=== PATIENT | female | born 1955 | race African-American/Black ===

== ENCOUNTER 2020-12-06 06:05 | Day surgery (SDCO) | payer OTHER ==
[~2020-12-06 06:05] MED LIST: ARICEPT23 MG PO; ASPIRIN CHEWABL81 MG PO; ATROPINE 0.01%-10 ML EYERT; AZOPT10 ML EYELF; BENTYL10 MG PO; BETIMOL5 ML EYEBOTH; BRIMONIDINE 0.110 ML EYEBOTH; CINNAMON500 MG PO; CIPRO500 M1 PO; COMBIGAN EYE DRO5 ML OS; DEXILANT60 MG PO; DIOVAN160 MG PO; DORZOLAMIDE 2% OU; ELAVIL50 MG PO; GINKGO BILOBA120 M1 PO; GINKGO BILOBA120 MG PO; GLUCOPHAGE1000 MG PO; GLUCOTROL5 MG PO; HUMULIN 70100 UNIT/1 SC; HUMULIN R100 UNIT/1 SC; HYDROCODONE-APA1 TAB PO; IBUPROFEN800 MG PO; IRBESARTAN150 MG PO; IRON325 M1 PO; ISOSORBIDE MONO60 M1 PO; ISOSORBIDE MONO60 MG PO; KLOR-CON M20 T20 MEQ PO; LANTUS **100 UNITS/ SC; LANTUS SOL100 UNIT/1 SC; LASIX40 MG PO; LINZESS290 MCG PO; LOPRESSOR50 MG PO; LUMIGAN5 ML OU; LYRICA 50MG CAP50 MG PO; LYRICA150 MG PO; MIRALAX17 GM PO; NAPROXEN500 MG PO; NITROQUIK SL0.4 MG SL; NORVASC5 MG PO; NOVOLOG FL100 UNIT/1 SC; NOVOLOG VI100 UNIT/1 SC; ONDANSETRON ODT4 MG SL; PRINIVIL10 MG PO; PROTONIX 40MG T40 MG PO; REGLAN10 MG PO; RHOPRESSA2.5 ML EYELF; ROBAXIN750 MG PO; TIZANIDINE HCL4 MG PO; TRESIBA100 UNIT/1 SC; ULTRA-LIGHT RO1 EACH XX; VENTOLIN (2.5 MG/3 M NEB; VERAPAMIL ER240 M1 PO; VITAMIN D1000 UNI1 PO; XALATAN2.5 ML EYELF; XALATAN2.5 ML OU; ZOFRAN4 MG PO; ZYRTEC10 MG PO; [UNRECOGNIZED DRUG - OTHER] OU
[2020-12-06 07:31] LABS: BASOPHIL 0.4 % (0-2); HCT 37.9 % (37.0-47.0); HGB 12.7 g/dl (12.5-16.0); LYMPHOCYTE 15.4 % (15-48); MCH 29.1 pg (25.0-31.0); MCHC 33.5 g/dL (32.0-36.0); MCV 86.7 fL (78.0-100.0); MONOCYTE 6.3 % (0-12); MPV 9.9 fL (6.0-9.5); NEUTROPHIL 76.4 % (41-80); NRBC 0; PLT 153 K/uL (150-400); RBC 4.37 M/uL (4.20-5.40); RDW 12.8 % (11.5-14.0); WBC 10.2 K/uL (4.0-10.5)
[2020-12-06 07:44] LABS: INR 1.21 (0.9-1.2); PROTHROMBIN TIME 14.5 SECONDS (11.4-13.6); PTT 28.5 SECONDS (22.2-34.7)
[2020-12-06 07:52] LABS: ALBUMIN 3.3 g/dL (3.4-5.0); BILIRUBIN - TOTAL 1.3 mg/dL (0.2-1.0); BUN/CREAT RATIO (CALC) 19.8 RATIO; CREATININE 0.96 mg/dL (0.51-0.95); GLOBULIN (CALCULATION) 3.8 g/dL; POTASSIUM 3.6 mmol/L (3.5-5.1); TOTAL PROTEIN 7.1 g/dL (6.4-8.2)
[2020-12-06 08:00] LABS: PRO-BNP 104 pg/mL (<125)
[2020-12-06] MEDS ORDERED: COREG12.5 MG PO (12:55)
[2020-12-06] MEDS ORDERED: CHLORTHALIDONE25 MG PO (12:56)
[2020-12-06] MEDS ORDERED: REGLAN10 MG PO (13:00)
[2020-12-06] MEDS ORDERED: HYDROCODON-ACE1 EAC1 PO (13:02)
[2020-12-06] MEDS ORDERED: NOVOLOG VI100 UNIT/1 SC (13:02)
--- NOTE | 2020-12-06 15:58 | NUR ---
PT C/O CHEST PRESSURE 6/10 AT THIS TIME. NORCO AND MUSCLE RELAXER WAS GIVEN BECAUSE PT ALREADY RECIEVED 3 X NITRO IN THE ER. WAS NOTIFIED THAT PAIN WAS NOT RESOLVED BY 1700 AND STATED HE WOULD PUT A NITRO PASTE IN. NO ORDER IN YET.
--- NOTE | 2020-12-06 17:00 | NUR ---
PT STILL SAYS CHEST PRESSURE IS 5/10 AND THAT NORCO DID NOT HELP. MD WAS NOTIFIED AND STATED HE WOULD PUT ANOTHER ORDER IN. NO NEW RODERS VERIFIED AT THIS TIME.
[2020-12-07] MEDS ORDERED: NORVASC5 MG PO (16:11)
--- NOTE | 2020-12-07 16:52 | NUR ---
12/07 Ms. Harding lives with her daughter and grandson. She has a cane, rw, handicapped commode, and s. chair. Ms. Harding request for PT and nursing. A referal was made to [facility] via [facility] per patient choice; affliation explained. Report given to Dr. Cosme and CR Adam RN.
== END 2020-12-07 16:56 | disposition home or self-care (01) ==
LOC: FER 06:05 → FTCU 10:52
PROVIDERS: Emergency Medicine Emergency Medical Services; ADMIT Hospitalist
DX: I11.0 Hypertensive heart disease with heart failure (principal); I50.9 Heart failure, unspecified; J44.9 Chronic obstructive pulmonary disease, unspecified; E11.9 Type 2 diabetes mellitus without complications; E11.40 Type 2 diabetes mellitus with diabetic neuropathy, unspecified; E78.5 Hyperlipidemia, unspecified; I25.10 Atherosclerotic heart disease of native coronary artery without angina pectoris; Z90.49 Acquired absence of other specified parts of digestive tract; Z90.710 Acquired absence of both cervix and uterus; Z98.41 Cataract extraction status, right eye; Z79.4 Long term (current) use of insulin; Z79.899 Other long term (current) drug therapy; Z20.822 Contact with and (suspected) exposure to COVID-19; R07.89 Other chest pain; Z82.49 Family history of ischemic heart disease and other diseases of the circulatory system; Z95.9 Presence of cardiac and vascular implant and graft, unspecified
CPT/HCPCS: 36415; 71045; 80053; 82962; 83880; 84484; 85025; 85610; 85730; 93005; 94010; C1713; G0378; J1200; J1940; U0002

== ENCOUNTER 2020-12-22 18:16 | Emergency (ER) | payer OTHER ==
[~2020-12-22 18:16] MED LIST changes: +CHLORTHALIDONE25 MG PO; +COREG12.5 MG PO; +HYDROCODON-ACE1 EAC1 PO
[2020-12-22 19:11] LABS: BASOPHIL 0.5 % (0-2); EOSINOPHIL 0.9 % (0-7); HCT 38.5 % (37.0-47.0); HGB 13.4 g/dl (12.5-16.0); LYMPHOCYTE 20.9 % (15-48); MCH 29.2 pg (25.0-31.0); MCHC 34.8 g/dL (32.0-36.0); MCV 83.9 fL (78.0-100.0); MONOCYTE 7.1 % (0-12); MPV 9.5 fL (6.0-9.5); NEUTROPHIL 70.3 % (41-80); NRBC 0; PLT 207 K/uL (150-400); RBC 4.59 M/uL (4.20-5.40); RDW 12.3 % (11.5-14.0); WBC 11.7 K/uL (4.0-10.5)
[2020-12-22 19:15] LABS: ALBUMIN 3.8 g/dL (3.4-5.0); BILIRUBIN - TOTAL 0.5 mg/dL (0.2-1.0); BUN/CREAT RATIO (CALC) 11.1 RATIO; CREATININE 1.26 mg/dL (0.51-0.95); POTASSIUM 3.2 mmol/L (3.5-5.1); TOTAL PROTEIN 7.8 g/dL (6.4-8.2)
[2020-12-22 19:16] LABS: INR 1.2 (0.9-1.2); PROTHROMBIN TIME 14.4 SECONDS (11.4-13.6)
[2020-12-22 19:17] LABS: PTT 27.8 SECONDS (22.2-34.7)
== END 2020-12-23 03:02 | disposition home or self-care (01) ==
LOC: FER 18:16
PROVIDERS: Emergency Medicine
DX: R07.9 Chest pain, unspecified (principal); R20.2 Paresthesia of skin; I69.354 Hemiplegia and hemiparesis following cerebral infarction affecting left non-dominant side; I50.9 Heart failure, unspecified; E11.9 Type 2 diabetes mellitus without complications; E78.5 Hyperlipidemia, unspecified; J44.9 Chronic obstructive pulmonary disease, unspecified; Z91.041 Radiographic dye allergy status
CPT/HCPCS: 36415; 70450; 71045; 80053; 84484; 85025; 85610; 85730; 93005; J0780; J1200; J2930; Q9967

== ENCOUNTER 2021-01-12 14:00 | Inpatient (IN) | payer OTHER ==
[2021-01-12 16:57] LABS: BASOPHIL 0.2 % (0-2); EOSINOPHIL 0 % (0-7); HCT 32.8 % (37.0-47.0); HGB 11.5 g/dl (12.5-16.0); LYMPHOCYTE 15.1 % (15-48); MCH 29.4 pg (25.0-31.0); MCHC 35.1 g/dL (32.0-36.0); MCV 83.9 fL (78.0-100.0); MONOCYTE 9.3 % (0-12); MPV 9.8 fL (6.0-9.5); NRBC 0; PLT 144 K/uL (150-400); RBC 3.91 M/uL (4.20-5.40); RDW 12.4 % (11.5-14.0); WBC 5.2 K/uL (4.0-10.5)
[2021-01-12 17:12] LABS: INR 1.28 (0.9-1.2); PROTHROMBIN TIME 15.2 SECONDS (11.4-13.6); PTT 32.5 SECONDS (22.2-34.7)
[2021-01-12 17:28] LABS: PRO-BNP 348 pg/mL (<125)
[2021-01-12 17:29] LABS: LACTIC ACID 1.5 mmol/L (0.4-1.9)
[2021-01-12 18:00] LABS: ALBUMIN 2.6 g/dL (3.4-5.0); ALKALINE PHOSHATASE 151 U/L (46-116); ALT 25 U/L (14-59); AST 36 U/L (15-37); BILIRUBIN - TOTAL 1.1 mg/dL (0.2-1.0); BUN 24 mg/dL (7-18); BUN/CREAT RATIO (CALC) 27.6 RATIO; C-REACTIVE PROTEIN >18.00 mg/dL (<=0.90); CHLORIDE 101 mmol/L (98-107); CO2 (BICARBONATE) 24 mmol/L (21-32); CREATININE 0.87 mg/dL (0.51-0.95); GLOBULIN (CALCULATION) 3.7 g/dL; GLUCOSE 362 mg/dL (74-106); LDH 544 U/L (81-234); POTASSIUM 3.7 mmol/L (3.5-5.1); TOTAL PROTEIN 6.3 g/dL (6.4-8.2)
[2021-01-13 07:00] LABS: BASOPHIL 0.5 % (0-2); EOSINOPHIL 0 % (0-7); HCT 34.1 % (37.0-47.0); HGB 11.8 g/dl (12.5-16.0); MCH 29.2 pg (25.0-31.0); MCHC 34.6 g/dL (32.0-36.0); MCV 84.4 fL (78.0-100.0); MONOCYTE 10.5 % (0-12); MPV 9.8 fL (6.0-9.5); NEUTROPHIL 75.1 % (41-80); NRBC 0; PLT 161 K/uL (150-400); RBC 4.04 M/uL (4.20-5.40); RDW 12.3 % (11.5-14.0); WBC 4.4 K/uL (4.0-10.5)
[2021-01-13 08:06] LABS: ALBUMIN 2.5 g/dL (3.4-5.0); BILIRUBIN - TOTAL 1.2 mg/dL (0.2-1.0); BUN/CREAT RATIO (CALC) 36.4 RATIO; CREATININE 0.66 mg/dL (0.51-0.95); GLOBULIN (CALCULATION) 4.8 g/dL; POTASSIUM 3.7 mmol/L (3.5-5.1); TOTAL PROTEIN 7.3 g/dL (6.4-8.2)
--- NOTE | 2021-01-13 14:21 | NUR ---
Pt triggered for recent wt loss with MST score of 4. No ONS at present. Patient on cardiac diet- RD recommended CCD 45 diet for optimal BS mgmt. will monitor p.o. intake and add ONS if appropriate.
[2021-01-14 06:09] LABS: BASOPHIL 0 % (0-2); EOSINOPHIL 0 % (0-7); HCT 33.4 % (37.0-47.0); HGB 11.3 g/dl (12.5-16.0); LYMPHOCYTE 8.8 % (15-48); MCH 28.7 pg (25.0-31.0); MCHC 33.8 g/dL (32.0-36.0); MCV 84.8 fL (78.0-100.0); MONOCYTE 10.3 % (0-12); NEUTROPHIL 80.4 % (41-80); NRBC 0; PLT 169 K/uL (150-400); RBC 3.94 M/uL (4.20-5.40); RDW 12.3 % (11.5-14.0); WBC 6.2 K/uL (4.0-10.5)
[2021-01-14 06:27] LABS: BUN/CREAT RATIO (CALC) 47.6 RATIO; CREATININE 0.82 mg/dL (0.51-0.95); POTASSIUM 3.5 mmol/L (3.5-5.1)
--- NOTE | 2021-01-14 14:22 | NUR ---
SPOKE WITH COMPA OLGUIN, PT IS COVID POS. ADVISED THAT PT. WILL GO HOME WITH O2. SHE ADVISED THAT PT IS CURRENT WITH [facility]. SHE WANTED [facility] FOR O2. SHE VERBALLY AGREED WITH CHOICE FORM. SENT REQUEST FOR O2 TRAVEL TANK TO [facility] AND REQUEST FOR CONCENTRATOR TO BE DELIVERED TO HOME. PT. IS CURRENTLY ON OXIMIZER PER DOROTHY LUCAS. SHE SAID THE OXAMIZER WOULD GO HOME WITH PT. SHIRAZ/SHARAN HAS BEEN MADE AWARE OF PT. STAY THROUGH [facility].
--- NOTE | 2021-01-14 14:24 | NUR ---
PLEASE NOTIFY [facility] IF PT. D/C OVER WEEKEND. ALSO PLEASE HAVE THE DAUGHTER CALL [facility] FOR WEEK END DELIVERY. THE PHONE NUMBER IS [phone].
--- NOTE | 2021-01-14 14:46 | NUR ---
TOILETED PT AND WALKED TO CHAIR FROM [facility] 1 WITH WALKER AND GAIT BELT.
--- NOTE | 2021-01-14 18:23 | NUR ---
1100- SPOKE WITH SON ABOUT PT CONDITION, INFORMED HIM OF THE USE OF REMDESIVIR AND CHANGING FROM 50% VENTI TO 6L OXIMIZER. PT SAT IS 94%. 1234- RESPITORY WEANED OXIMIZER TO 5L 02. 1414- SPOKE WITH SON AGAIN ABOUT NEW MEDICATION TOCILIZUMAB BEING USED. SON VERBALIZED UNDERSTANDING.
[2021-01-15 06:02] LABS: BASOPHIL 0.2 % (0-2); EOSINOPHIL 0 % (0-7); HCT 30.7 % (37.0-47.0); HGB 10.6 g/dl (12.5-16.0); LYMPHOCYTE 10.2 % (15-48); MCHC 34.5 g/dL (32.0-36.0); MCV 83.9 fL (78.0-100.0); MONOCYTE 12.1 % (0-12); NEUTROPHIL 76.5 % (41-80); NRBC 0; PLT 191 K/uL (150-400); RBC 3.66 M/uL (4.20-5.40); RDW 12.4 % (11.5-14.0); WBC 5.9 K/uL (4.0-10.5)
[2021-01-15 06:31] LABS: INR 1.43 (0.9-1.2); PROTHROMBIN TIME 16.6 SECONDS (11.4-13.6)
[2021-01-15 06:36] LABS: ALBUMIN 2.3 g/dL (3.4-5.0); BILIRUBIN - TOTAL 0.5 mg/dL (0.2-1.0); BUN/CREAT RATIO (CALC) 38.2 RATIO; C-REACTIVE PROTEIN 4.7 mg/dL (<=0.90); CREATININE 1.1 mg/dL (0.51-0.95); POTASSIUM 3.6 mmol/L (3.5-5.1); TOTAL PROTEIN 6.3 g/dL (6.4-8.2)
[2021-01-16 04:16] LABS: BASOPHIL 0.1 % (0-2); EOSINOPHIL 0 % (0-7); HCT 30.4 % (37.0-47.0); HGB 10.5 g/dl (12.5-16.0); LYMPHOCYTE 10.6 % (15-48); MCH 29.1 pg (25.0-31.0); MCHC 34.5 g/dL (32.0-36.0); MCV 84.2 fL (78.0-100.0); MPV 9.7 fL (6.0-9.5); NEUTROPHIL 74.1 % (41-80); NRBC 0.4; PLT 215 K/uL (150-400); RBC 3.61 M/uL (4.20-5.40); RDW 12.4 % (11.5-14.0); WBC 7.1 K/uL (4.0-10.5)
[2021-01-16 04:34] LABS: BUN/CREAT RATIO (CALC) 35.8 RATIO; C-REACTIVE PROTEIN 2.9 mg/dL (<=0.90); CREATININE 1.09 mg/dL (0.51-0.95); POTASSIUM 3.5 mmol/L (3.5-5.1)
[2021-01-17 10:07] LABS: FOLIC ACID (SERUM) 12.6 ng/mL (8.6-58.9)
--- NOTE | 2021-01-17 14:40 | NUR ---
0930- HAD PT IN SEMI PRONE POSITION. 02 IMPROVED FROM 92% TO 100% ON HIGH FLOW O2. STAYED IN THIS POSITION FOR 30MINUTES. PT CONFUSED AND REPEATEDLY CLIMBING OUT OF BED AND HAVING CONFUSED STATEMENTS. STATES HER DAUGHTER IS IN ROOM. 1000 [employer] AT PT BEDSIDE SITTER. 1015 ASSISTED WITH PT AMBULATION TO CHAIR. 1400-RIGOBERTO PT SON CALLED FOR UPDATE ON CONDITION. NOTIFIED OF O2 SAT 96% PT CONTINUE TO BECOME INCREASINGLY CONFUSED. WILL NOTIFY DR. CONTI
[2021-01-17 19:55] LABS: CHOLESTEROL 70 mg/dL (<200); HDL 23 mg/dL (40-60); LDL - DIRECT 36 mg/dL (<100); TRIGLYCERIDES 82 mg/dL (<150)
[2021-01-18 06:18] LABS: HGB 12.5 g/dl (12.5-16.0); MCH 29.1 pg (25.0-31.0); MCHC 34.7 g/dL (32.0-36.0); MCV 83.9 fL (78.0-100.0); MPV 9.5 fL (6.0-9.5); RBC 4.29 M/uL (4.20-5.40); RDW 12.7 % (11.5-14.0); WBC 10.3 K/uL (4.0-10.5)
[2021-01-18 06:40] LABS: BUN/CREAT RATIO (CALC) 43.9 RATIO; CREATININE 0.66 mg/dL (0.51-0.95); POTASSIUM 3.7 mmol/L (3.5-5.1)
== END 2021-01-18 10:56 | disposition other institution (70) | DRG 177 ==
LOC: FER 14:00 → FTCU 17:59 → FICU 01-17 05:45
PROVIDERS: Emergency Medicine; Hospitalist; Nurse Practitioner; ADMIT Allergy & Immunology Allergy
PROC: 8E0ZXY6 Isolation (ICD-10-PCS; 2021-01-12)
PROC: 5A0945A Assistance with Respiratory Ventilation, 24-96 Consecutive Hours, High Flow/Velocity Cannula (ICD-10-PCS; 2021-01-12)
PROC: XW033E5 Introduction of Remdesivir Anti-infective into Peripheral Vein, Percutaneous Approach, New Technology Group 5 (ICD-10-PCS; principal; 2021-01-13)
PROC: XW033H5 Introduction of Tocilizumab into Peripheral Vein, Percutaneous Approach, New Technology Group 5 (ICD-10-PCS; 2021-01-14)
DX: U07.1 COVID-19 (principal); J96.01 Acute respiratory failure with hypoxia; J12.82 Pneumonia due to coronavirus disease 2019; I63.9 Cerebral infarction, unspecified; G93.41 Metabolic encephalopathy; K74.60 Unspecified cirrhosis of liver; E11.65 Type 2 diabetes mellitus with hyperglycemia; T38.0X5A Adverse effect of glucocorticoids and synthetic analogues, initial encounter; J44.9 Chronic obstructive pulmonary disease, unspecified; R10.9 Unspecified abdominal pain; I11.0 Hypertensive heart disease with heart failure; I50.9 Heart failure, unspecified; H40.9 Unspecified glaucoma; H54.8 Legal blindness, as defined in USA; K38.8 Other specified diseases of appendix; E11.40 Type 2 diabetes mellitus with diabetic neuropathy, unspecified; K76.0 Fatty (change of) liver, not elsewhere classified; Z90.49 Acquired absence of other specified parts of digestive tract; Z90.710 Acquired absence of both cervix and uterus; Z91.041 Radiographic dye allergy status; Z91.013 Allergy to seafood; Z98.42 Cataract extraction status, left eye; Z86.73 Personal history of transient ischemic attack (TIA), and cerebral infarction without residual deficits; Z79.4 Long term (current) use of insulin; Z79.899 Other long term (current) drug therapy
CPT/HCPCS: 36415; 36600; 70450; 70551; 71045; 71250; 80048; 80053; 80061; 82140; 82607; 82728; 82746; 82803; 82962; 83036; 83540; 83605; 83615; 83880; 84145; 84484; 85025; 85610; 85730; 86140; 93880; 94640; 97110; 97116; 97162; 97166; 97530-GP; 97535; C9399; J1100; J1200; J1650; J2060; J2405; J2543; J3262; J3486; J7050; J8540; U0002

== ENCOUNTER 2021-03-08 15:18 | Emergency (ER) | payer OTHER ==
[2021-03-08 16:10] LABS: BASOPHIL 0.6 % (0-2); EOSINOPHIL 6.1 % (0-7); HCT 36.2 % (37.0-47.0); HGB 12.1 g/dl (12.5-16.0); LYMPHOCYTE 24.6 % (15-48); MCH 30.4 pg (25.0-31.0); MCHC 33.4 g/dL (32.0-36.0); MONOCYTE 8.9 % (0-12); MPV 10.4 fL (6.0-9.5); NEUTROPHIL 59.2 % (41-80); NRBC 0; PLT 141 K/uL (150-400); RBC 3.98 M/uL (4.20-5.40); RDW 13.9 % (11.5-14.0); WBC 7.8 K/uL (4.0-10.5)
[2021-03-08 17:02] LABS: ALBUMIN 2.8 g/dL (3.4-5.0); BILIRUBIN - TOTAL 0.4 mg/dL (0.2-1.0); CREATININE 0.95 mg/dL (0.51-0.95); GLOBULIN (CALCULATION) 4.9 g/dL; POTASSIUM 4.5 mmol/L (3.5-5.1); TOTAL PROTEIN 7.7 g/dL (6.4-8.2)
== END 2021-03-08 18:50 | disposition home or self-care (01) ==
LOC: FER 15:18
PROVIDERS: Emergency Medicine
DX: E11.65 Type 2 diabetes mellitus with hyperglycemia (principal); J44.9 Chronic obstructive pulmonary disease, unspecified; I10 Essential (primary) hypertension; Z79.4 Long term (current) use of insulin
CPT/HCPCS: 36415; 80053; 85025; J7030

== ENCOUNTER 2021-05-01 08:52 | Emergency (ER) | payer OTHER ==
[2021-05-01 10:05] LABS: BASOPHIL 0.4 % (0-2); EOSINOPHIL 1.9 % (0-7); HCT 34.6 % (37.0-47.0); HGB 11.5 g/dl (12.5-16.0); LYMPHOCYTE 17.1 % (15-48); MCH 27.7 pg (25.0-31.0); MCHC 33.2 g/dL (32.0-36.0); MCV 83.4 fL (78.0-100.0); MONOCYTE 9.5 % (0-12); MPV 10.9 fL (6.0-9.5); NEUTROPHIL 70.6 % (41-80); NRBC 0; PLT 133 K/uL (150-400); RBC 4.15 M/uL (4.20-5.40); RDW 12.5 % (11.5-14.0); WBC 8.3 K/uL (4.0-10.5)
[2021-05-01 10:19] LABS: ALBUMIN 2.8 g/dL (3.4-5.0); BILIRUBIN - TOTAL 0.7 mg/dL (0.2-1.0); BUN/CREAT RATIO (CALC) 32.6 RATIO; CREATININE 0.86 mg/dL (0.51-0.95); GLOBULIN (CALCULATION) 4.4 g/dL; POTASSIUM 3.5 mmol/L (3.5-5.1); TOTAL PROTEIN 7.2 g/dL (6.4-8.2)
[2021-05-01 13:04] LABS: BILIRUBIN NEGATIVE (NEGATIVE); BLOOD TRACE-INTACT Ery/uL (NEGATIVE); CLARITY CLEAR (CLEAR); COLOR YELLOW (YELLOW); GLUCOSE (U) NORMAL (NORMAL); LEUKOCYTES 2+ Leu/uL (NEGATIVE); NITRITE POSITIVE (NEGATIVE); PROTEIN NEGATIVE (NEGATIVE); UROBILINOGEN 0.2 mg/dL (0.2-1.0); pH 5.5 (5.0-9.0)
[2021-05-01 13:15] LABS: BACTERIA 4+; URINARY WBC 20-50; YEAST PRESENT
[2021-05-01] MEDS ORDERED: BACTRIM DS TAB1 EACH PO (13:36)
[2021-05-01] MEDS ORDERED: DIFLUCAN 100MG100 MG PO (13:36)
== END 2021-05-01 13:52 | disposition home or self-care (01) ==
LOC: FER 08:52
PROVIDERS: Emergency Medicine
DX: N39.0 Urinary tract infection, site not specified (principal); I11.0 Hypertensive heart disease with heart failure; I50.9 Heart failure, unspecified; Z91.041 Radiographic dye allergy status; Z79.82 Long term (current) use of aspirin; Z79.899 Other long term (current) drug therapy
CPT/HCPCS: 36415; 80053; 81001; 82150; 83690; 85025; J2270; J2405

== ENCOUNTER 2021-06-18 10:23 | Inpatient (IN) | payer OTHER ==
[~2021-06-18] VITALS: Ht 157.5 cm; Wt 73.2 kg
[~2021-06-18 10:23] MED LIST changes: +BACTRIM DS TAB1 EACH PO; +DIFLUCAN 100MG100 MG PO
[2021-06-18 12:47] LABS: BASOPHIL 0.3 % (0-2); EOSINOPHIL 1.7 % (0-7); HCT 31.4 % (37.0-47.0); HGB 10.2 g/dl (12.5-16.0); LYMPHOCYTE 10.8 % (15-48); MCH 26.4 pg (25.0-31.0); MCHC 32.5 g/dL (32.0-36.0); MCV 81.3 fL (78.0-100.0); MONOCYTE 8.4 % (0-12); MPV 9.7 fL (6.0-9.5); NEUTROPHIL 78.5 % (41-80); NRBC 0; PLT 139 K/uL (150-400); RBC 3.86 M/uL (4.20-5.40); RDW 13.6 % (11.5-14.0); WBC 5.8 K/uL (4.0-10.5)
[2021-06-18 13:07] LABS: ALBUMIN 2.6 g/dL (3.4-5.0); BILIRUBIN - TOTAL 0.6 mg/dL (0.2-1.0); BUN/CREAT RATIO (CALC) 28.9 RATIO; CREATININE 0.76 mg/dL (0.51-0.95); GLOBULIN (CALCULATION) 4.2 g/dL; POTASSIUM 4.2 mmol/L (3.5-5.1); TOTAL PROTEIN 6.8 g/dL (6.4-8.2)
[2021-06-18 13:17] LABS: BILIRUBIN NEGATIVE (NEGATIVE); BLOOD 1+ Ery/uL (NEGATIVE); COLOR YELLOW (YELLOW); GLUCOSE (U) TRACE mg/dL (NORMAL); LEUKOCYTES 1+ Leu/uL (NEGATIVE); NITRITE NEGATIVE (NEGATIVE); PROTEIN NEGATIVE (NEGATIVE); pH 6.5 (5.0-9.0)
[2021-06-18 13:21] LABS: CLARITY CLOUDY (CLEAR)
[2021-06-18 13:26] LABS: BACTERIA 3+; YEAST PRESENT
[2021-06-18 14:27] LABS: INR 1.22 (0.9-1.2); PROTHROMBIN TIME 14.8 SECONDS (11.8-13.4); PTT 26.5 SECONDS (24.4-34.7)
[2021-06-18] MEDS ORDERED: ASPIRIN EC325 MG PO (18:51)
[2021-06-19 06:31] LABS: BASOPHIL 0.4 % (0-2); EOSINOPHIL 2.9 % (0-7); HCT 28.7 % (37.0-47.0); HGB 9.2 g/dl (12.5-16.0); LYMPHOCYTE 21.1 % (15-48); MCH 26.1 pg (25.0-31.0); MCHC 32.1 g/dL (32.0-36.0); MCV 81.3 fL (78.0-100.0); MONOCYTE 12.7 % (0-12); MPV 10.4 fL (6.0-9.5); NEUTROPHIL 62.5 % (41-80); NRBC 0; PLT 142 K/uL (150-400); RBC 3.53 M/uL (4.20-5.40); RDW 13.7 % (11.5-14.0); WBC 4.9 K/uL (4.0-10.5)
[2021-06-19 07:35] LABS: ALBUMIN 2.4 g/dL (3.4-5.0); BILIRUBIN - TOTAL 0.5 mg/dL (0.2-1.0); BUN/CREAT RATIO (CALC) 20.5 RATIO; CREATININE 0.73 mg/dL (0.51-0.95); POTASSIUM 4.2 mmol/L (3.5-5.1); TOTAL PROTEIN 6.4 g/dL (6.4-8.2)
[2021-06-20 06:12] LABS: BASOPHIL 0.5 % (0-2); EOSINOPHIL 3.3 % (0-7); HCT 32.3 % (37.0-47.0); HGB 10.3 g/dl (12.5-16.0); LYMPHOCYTE 19.3 % (15-48); MCH 25.9 pg (25.0-31.0); MCHC 31.9 g/dL (32.0-36.0); MCV 81.4 fL (78.0-100.0); MONOCYTE 11.4 % (0-12); MPV 9.8 fL (6.0-9.5); NEUTROPHIL 65.3 % (41-80); NRBC 0; PLT 147 K/uL (150-400); RBC 3.97 M/uL (4.20-5.40); RDW 13.6 % (11.5-14.0); WBC 4.3 K/uL (4.0-10.5)
[2021-06-20 06:24] LABS: ALBUMIN 2.7 g/dL (3.4-5.0); BILIRUBIN - TOTAL 0.6 mg/dL (0.2-1.0); BUN/CREAT RATIO (CALC) 19.7 RATIO; CREATININE 0.76 mg/dL (0.51-0.95); GLOBULIN (CALCULATION) 3.8 g/dL; POTASSIUM 3.9 mmol/L (3.5-5.1); TOTAL PROTEIN 6.5 g/dL (6.4-8.2)
--- NOTE | 2021-06-20 14:43 | NUR ---
SPOKE WITH DAUGHTER, AMY. SHE ADVISED THAT HER MOTHER HAS A CANE AND ROLLING WALKER. SHE ALSO HAS HOME O2 AND WILL BRING A PORTABLE TANK WHEN SHE IS READY TO D/C HOME. PT. DAUGHTER DECLINED HH AT THIS TIME AND STATED THAT SHE TAKES CARE OF HER MOTHER.
[2021-06-21 06:11] LABS: BASOPHIL 0.6 % (0-2); EOSINOPHIL 2.9 % (0-7); HCT 30.5 % (37.0-47.0); HGB 9.7 g/dl (12.5-16.0); LYMPHOCYTE 18.2 % (15-48); MCH 25.9 pg (25.0-31.0); MCHC 31.8 g/dL (32.0-36.0); MCV 81.3 fL (78.0-100.0); MONOCYTE 13.6 % (0-12); MPV 9.9 fL (6.0-9.5); NEUTROPHIL 64.5 % (41-80); NRBC 0; PLT 145 K/uL (150-400); RBC 3.75 M/uL (4.20-5.40); RDW 13.8 % (11.5-14.0); WBC 4.8 K/uL (4.0-10.5)
[2021-06-21 06:32] LABS: ALBUMIN 2.4 g/dL (3.4-5.0); BILIRUBIN - TOTAL 0.4 mg/dL (0.2-1.0); CREATININE 0.84 mg/dL (0.51-0.95); GLOBULIN (CALCULATION) 4.2 g/dL; TOTAL PROTEIN 6.6 g/dL (6.4-8.2)
[2021-06-22] MEDS ORDERED: DIFLUCAN 100MG100 MG PO (10:42)
[2021-06-22] MEDS ORDERED: COREG25 MG PO (10:42)
== END 2021-06-22 11:42 | disposition home or self-care (01) | DRG 757 ==
LOC: FER 10:23 → FMS 16:07
PROVIDERS: Internal Medicine; Nurse Practitioner; ADMIT Allergy & Immunology Allergy
DX: B37.41 Candidal cystitis and urethritis (principal); G93.41 Metabolic encephalopathy; F05 Delirium due to known physiological condition; Z20.822 Contact with and (suspected) exposure to COVID-19; E11.9 Type 2 diabetes mellitus without complications; F03.90 Unspecified dementia, unspecified severity, without behavioral disturbance, psychotic disturbance, mood disturbance, and anxiety; E78.5 Hyperlipidemia, unspecified; H40.9 Unspecified glaucoma; G89.29 Other chronic pain; K76.0 Fatty (change of) liver, not elsewhere classified; E11.40 Type 2 diabetes mellitus with diabetic neuropathy, unspecified; H54.8 Legal blindness, as defined in USA; M19.90 Unspecified osteoarthritis, unspecified site; J47.9 Bronchiectasis, uncomplicated; K74.60 Unspecified cirrhosis of liver; I50.9 Heart failure, unspecified; R16.1 Splenomegaly, not elsewhere classified; Z90.49 Acquired absence of other specified parts of digestive tract; Z90.710 Acquired absence of both cervix and uterus; Z98.890 Other specified postprocedural states; B94.8 Sequelae of other specified infectious and parasitic diseases; Z86.73 Personal history of transient ischemic attack (TIA), and cerebral infarction without residual deficits; Z83.3 Family history of diabetes mellitus; Z82.49 Family history of ischemic heart disease and other diseases of the circulatory system; Z91.041 Radiographic dye allergy status; Z91.013 Allergy to seafood
CPT/HCPCS: 36415; 70450; 71250; 80053; 81001; 82140; 82150; 82962; 83605; 83690; 84145; 84484; 85025; 85610; 85730; 87088; 93005; 97162; 97166; 97530-GP; 97535; J0696; J1170; J2405; J3360; J7030; U0002

== ENCOUNTER 2021-06-26 08:35 | Emergency (ER) | payer OTHER ==
[~2021-06-26] VITALS: Ht 157.5 cm; Wt 77.1 kg
[~2021-06-26 08:35] MED LIST changes: +ASPIRIN EC325 MG PO; +COREG25 MG PO
[2021-06-26 09:09] LABS: BASOPHIL 0.2 % (0-2); EOSINOPHIL 0.3 % (0-7); HCT 32.8 % (37.0-47.0); HGB 10.3 g/dl (12.5-16.0); LYMPHOCYTE 8.8 % (15-48); MCH 25.6 pg (25.0-31.0); MCHC 31.4 g/dL (32.0-36.0); MCV 81.6 fL (78.0-100.0); MONOCYTE 9.8 % (0-12); NEUTROPHIL 80.4 % (41-80); NRBC 0; PLT 161 K/uL (150-400); RBC 4.02 M/uL (4.20-5.40); RDW 13.9 % (11.5-14.0)
[2021-06-26 09:24] LABS: BILIRUBIN NEGATIVE (NEGATIVE); BLOOD NEGATIVE Ery/uL (NEGATIVE); CLARITY CLEAR (CLEAR); COLOR YELLOW (YELLOW); GLUCOSE (U) 1+ mg/dL (NORMAL); LEUKOCYTES TRACE Leu/uL (NEGATIVE); NITRITE NEGATIVE (NEGATIVE); PROTEIN 1+ mg/dL (NEGATIVE); SPECIFIC GRAVITY >=1.030 (1.001-1.030)
[2021-06-26 09:25] LABS: LACTIC ACID 1.4 mmol/L (0.4-1.9)
[2021-06-26 09:30] LABS: ALBUMIN 2.4 g/dL (3.4-5.0); ALKALINE PHOSHATASE 226 U/L (46-116); ALT 44 U/L (14-59); AST 22 U/L (15-37); BILIRUBIN - TOTAL 0.8 mg/dL (0.2-1.0); BUN 29 mg/dL (7-18); BUN/CREAT RATIO (CALC) 40.8 RATIO; CHLORIDE 103 mmol/L (98-107); CO2 (BICARBONATE) 27 mmol/L (21-32); CREATININE 0.71 mg/dL (0.51-0.95); GLOBULIN (CALCULATION) 4.8 g/dL; GLUCOSE 272 mg/dL (74-106); TOTAL PROTEIN 7.2 g/dL (6.4-8.2)
[2021-06-26 09:30] LABS: YEAST PRESENT
== END 2021-06-26 12:44 | disposition home or self-care (01) ==
LOC: FER 08:35
PROVIDERS: Emergency Medicine
DX: E11.65 Type 2 diabetes mellitus with hyperglycemia (principal); F03.90 Unspecified dementia, unspecified severity, without behavioral disturbance, psychotic disturbance, mood disturbance, and anxiety; I10 Essential (primary) hypertension; J44.9 Chronic obstructive pulmonary disease, unspecified; Z91.041 Radiographic dye allergy status
CPT/HCPCS: 36415; 71045; 80053; 81001; 82140; 83605; 84443; 84484; 85025; 93005; J7030

== ENCOUNTER 2022-02-03 17:07 | Emergency (ER) | payer OTHER | END 2022-02-03 19:32 | disposition left against medical advice (07) | LOC: FER 17:07 | DX: R07.89 Other chest pain (principal); R20.2 Paresthesia of skin; Z53.21 Procedure and treatment not carried out due to patient leaving prior to being seen by health care provider | CPT/HCPCS: 93005 ==

== ENCOUNTER 2022-03-11 22:23 | Emergency (ER) | payer OTHER ==
[2022-03-12 00:38] LABS: BILIRUBIN NEGATIVE (NEGATIVE); BLOOD TRACE-INTACT Ery/uL (NEGATIVE); CLARITY CLEAR (CLEAR); COLOR YELLOW (YELLOW); GLUCOSE (U) 3+ mg/dL (NORMAL); LEUKOCYTES NEGATIVE Leu/uL (NEGATIVE); NITRITE NEGATIVE (NEGATIVE); PROTEIN NEGATIVE (NEGATIVE)
[2022-03-12 00:38] LABS: BASOPHIL 0.1 % (0-2); EOSINOPHIL 0.1 % (0-7); HGB 11.2 g/dl (12.5-16.0); LYMPHOCYTE 12.2 % (15-48); MCH 29.6 pg (25.0-31.0); MCHC 32.9 g/dL (32.0-36.0); MCV 89.9 fL (78.0-100.0); MONOCYTE 13.2 % (0-12); MPV 9.7 fL (6.0-9.5); NRBC 0; PLT 134 K/uL (150-400); RBC 3.78 M/uL (4.20-5.40); RDW 13.1 % (11.5-14.0); WBC 7.7 K/uL (4.0-10.5)
[2022-03-12 00:48] LABS: BACTERIA TRACE; URINARY WBC RARE
[2022-03-12 00:49] LABS: YEAST PRESENT
[2022-03-12 01:02] LABS: ALBUMIN 3.4 g/dL (3.4-5.0); BILIRUBIN - TOTAL 0.7 mg/dL (0.2-1.0); BUN/CREAT RATIO (CALC) 19.6 RATIO; CREATININE 1.07 mg/dL (0.51-0.95); GLOBULIN (CALCULATION) 3.8 g/dL; POTASSIUM 3.6 mmol/L (3.5-5.1); TOTAL PROTEIN 7.2 g/dL (6.4-8.2)
[2022-03-12 01:39] LABS: INR 1.34 (0.9-1.2); PROTHROMBIN TIME 15.9 SECONDS (11.8-13.4)
== END 2022-03-12 01:50 | disposition home or self-care (01) ==
LOC: FER 22:23
PROVIDERS: Emergency Medicine
DX: R10.31 Right lower quadrant pain (principal); K74.60 Unspecified cirrhosis of liver; I50.9 Heart failure, unspecified; Z91.041 Radiographic dye allergy status
CPT/HCPCS: 36415; 80053; 81001; 83690; 85025; 85610